=== PATIENT | female | born 1980 | race Caucasian/White ===

== ENCOUNTER 2017-09-22 08:07 | Day surgery (SDC) | payer BC ==
[2017-09-20 11:41] VITALS: BMI 25.1
[~2017-09-22 08:07] MED LIST: LACTATED RINGERS 1,000 ML IV SCH; LIDOCAINE 1% 20 ML VIAL (10MG/ML) FOR IV START INTRADERMA PRN
[2017-09-22 08:26] VITALS: RESP 16; TEMP 96.9
--- NOTE | 2017-09-22 08:37 | P.GSHP ---
History of Present Illness H&P Date: 09/22/17 CHIEF COMPLAINT: Change in bowel habits HISTORY OF PRESENT ILLNESS: The patient is a 37-year-old female who presents with change in bowel habits Lower endoscopy was offered for further evaluation and management. PAST MEDICAL HISTORY: Please see list. PAST SURGICAL HISTORY: Please see list. MEDICATIONS: Please see list. ALLERGIES: Please see list. SOCIAL HISTORY: No illicit drug use FAMILY HISTORY: No reports of Crohn disease or ulcerative colitis. REVIEW OF ORGAN SYSTEMS: CONSTITUTIONAL: No reports of fevers or chills. PHYSICAL EXAM: VITAL SIGNS: Stable GENERAL: Well-developed pleasant in no acute distress. HEENT: No scleral icterus. Extraocular movements grossly intact. Moist buccal mucosa. NECK: Supple without lymphadenopathy. CHEST: Unlabored respirations. Equal bilateral excursions. CARDIOVASCULAR: Regular rate and rhythm. Distal 2+ pulses. ABDOMEN: Soft, nontender, nondistended. MUSCULOSKELETAL: No clubbing, cyanosis, or edema. ASSESSMENT: 1. Change in bowel habits. PLAN: 1. Recommend proceeding with a lower endoscopy Past Medical History Additional Past Medical History / Comment(s): migraines, lower abdominal pain, diarrhea, occ blood in stool, History of Any Multi-Drug Resistant Organisms: None Reported Past Surgical History: Breast Surgery, Uterine Ablation Additional Past Surgical History / Comment(s): breast reduction, vein surgery neel legs, Past Anesthesia/Blood Transfusion Reactions: Previous Problems w/ Anesthesia Additional Past Anesthesia/Blood Transfusion Reaction / Comment(s): "shaky coming out, don't feel like anesthesia works well for me" Smoking Status: Former smoker - Past Family History Mother Family Medical History: No Reported History Medications and Allergies Home Medications Medication Instructions Recorded Confirmed Type L.acidoph,Paracasei, B.lactis 1 each PO DAILY 09/20/17 09/20/17 History [Probiotic] Phentermine HCl [Adipex-P] 37.5 mg PO QAM 09/20/17 09/22/17 History Allergies Allergy/AdvReac Type Severity Reaction Status Date / Time No Known Allergies Allergy Verified 09/22/17 08:21 Surgical - Exam Vital Signs Temp Pulse Resp BP Pulse Ox 96.9 F L 73 16 127/72 100 09/22/17 08:22 09/22/17 08:22 09/22/17 08:22 09/22/17 08:22 09/22/17 08:22
[2017-09-22] MEDS ORDERED: PROPOFOL 10 MG/ML 20 ML VIAL IV ONE (09:34)
[2017-09-22] MEDS ORDERED: LIDOCAINE 1% INJ 10MG/ML (20 ML MDV) ONE (09:34)
--- NOTE | 2017-09-22 10:04 | P.PCN ---
Date of Procedure: 09/22/17 Description of Procedure: PREOPERATIVE DIAGNOSIS: Altered bowel function POSTOPERATIVE DIAGNOSIS: Altered bowel function OPERATION: Colonoscopy to the ileocecal valve and appendiceal orifice. SURGEON: Chantale Bernard MD. ANESTHESIA: MAC. INDICATIONS: The patient is a 37-year-old female who presents for change in bowel habits. Benefits and risks were described and informed consent was obtained. DESCRIPTION OF PROCEDURE: The patient had undergone Gatorade, MiraLAX and Dulcolax prep. She had been brought into the operating room and laid in the left lateral decubitus position. After adequate intravenous sedation, the rectum was examined with 2% lidocaine jelly. No external hemorrhoids were encountered. The rectal tone was within normal limits. No lesions were palpated in the rectal vault. An Olympus colonoscope was advanced until the ileocecal valve and appendiceal orifice were clearly viewed. The prep was good with visualization of the mucosal folds. The scope was removed with visualization of each mucosal fold. No scattered diverticulosis was encountered. No colonic polyps were found. No evidence of focal colitis was found. She had a moderately redundant sigmoid colon. Random biopsies were obtained throughout the colon for history of change in bowel habits. Retroflexion of the scope demonstrated grade 1 internal hemorrhoids without active bleeding or inflammation. The colon was desufflated. The patient had tolerated the procedure well. Withdrawal time was over 6 minutes. FINDINGS: Internal hemorrhoids, grade 1 No external prolapsed hemorrhoids. 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 No adenomatous polyps. No focal colitis. RECOMMENDATIONS: Lower endoscopy every as needed. Plan - Discharge Summary New Discharge Prescriptions: No Action L.acidoph,Paracasei, B.lactis [Probiotic] 1 each PO DAILY Phentermine HCl [Adipex-P] 37.5 mg PO QAM Discharge Medication List L.acidoph,Paracasei, B.lactis [Probiotic] 1 each PO DAILY 09/20/17 [History] Phentermine HCl [Adipex-P] 37.5 mg PO QAM 09/20/17 [History]
[2017-09-22 10:44] VITALS: BP 124/77; PULSE 66
== END 2017-09-22 10:51 | disposition home or self-care (01) ==
LOC: ORWHC2ENDO 08:07
PROVIDERS: ATTEND Surgery Plastic and Reconstructive Surgery
DX: K64.0 First degree hemorrhoids (principal); Q43.8 Other specified congenital malformations of intestine; R19.4 Change in bowel habit; Z87.891 Personal history of nicotine dependence; Z79.83 Long term (current) use of bisphosphonates; Z79.899 Other long term (current) drug therapy
CPT/HCPCS: 81025; 88305; 45380; J2001; J2704